=== PATIENT | female | born 1950 | race Caucasian/White ===

== ENCOUNTER → 2016-10-19 | Outpatient (CLI) | payer MEDICARE | LOC: US 10-18 09:46 | DX: R10.11 Right upper quadrant pain (principal); K80.20 Calculus of gallbladder without cholecystitis without obstruction | CPT/HCPCS: 76705 ==

== ENCOUNTER → 2021-07-26 | Outpatient (CLI) | payer MEDICARE, OTHER ==
[~2021-07-26] MED LIST: ASPIRIN81 MG PO; IMDUR ER TAB 3030 MG PO; NITROSTAT0.4 MG SL; TOPROL XL25 MG PO
== END ==
LOC: HEART 5 15:43
DX: J44.9 Chronic obstructive pulmonary disease, unspecified (principal)
CPT/HCPCS: 94060; 94729